=== PATIENT | male | born 1975 | race Hispanic/Latino ===

== ENCOUNTER 2024-12-19 20:06 | Emergency (ER) | payer SELFPAY ==
[~2024-12-19] VITALS: Ht 170.2 cm; Wt 95.3 kg
[2024-12-19 20:17] VITALS: TEMP 98.7
[2024-12-19] MEDS: BENZONATATE 100 MG CAPSULE PO STA (20:18)
[2024-12-19 20:38] LABS: RAPID GROUP A STREP negative (NEGATIVE)
[2024-12-19 20:47] LABS: INFLUENZA TYPE A Negative For Type A (NEGATIVE); INFLUENZA TYPE B Negative For Type B (NEGATIVE)
--- NOTE | 2024-12-19 21:24 | HMCIMG ---
EXAM: XR Chest, 1 View. CLINICAL HISTORY: 49 year old male with cough. COMPARISON: None provided. FINDINGS: LUNGS: The lungs are clear. No consolidation. PLEURAL SPACES: No pleural effusion or pneumothorax. HEART: The heart size is normal. BONES: No acute osseous abnormality. IMPRESSION: 1. No acute findings. /[place]
--- NOTE | 2024-12-19 21:28 | ERN ---
ED Note History of Present Illness Stated Complaint: C/O COUGH,CHILLS, PHLEGM, ITCHING TO THROAT Chief Complaint: Cough Time Seen by MD: 20:10 Time Seen by Midlevel: 20:11 Dictation: 49-year-old male coming in with complaints of cough for two days, fevers, congestion. Denies having any medical or surgical history. Denies any chest pain or chest discomfort. Denies any shortness a breath. Allergies: Coded Allergies: No Known Allergies (Unverified Allergy, Unknown, 12/19/24) Past Medical History Past Medical History: No Pertinent History Surgical History: None Review of System Dictation Constitutional: Negative for fever,chills, and weight loss Eyes: Negative for injury, pain,redness, and discharge ENT: Negative for injury,pain or swelling Cardiovascular: Negative for chest pain, palpitations, and edema Respiratory: Negative for shortness of breath, cough, and wheezing, Abdomen/GI: Negative for abdominal pain, nausea, vomiting, diarrhea, and constipation Back: Negative for injury and pain : Negative for injury, bleeding and discharge MS/Extremity: Negative for injury and deformity Skin: Negative for rash, and discoloration Neuro: Negative for headache, weakness, numbness, tingling, and seizure Psych: Negative for suicide ideation, homicidal ideation, and hallucinations Review of Systems: was completed Initial Vital Sign VS Vital Signs Date Time Temp Pulse Resp B/P (MAP) Pulse Ox O2 Delivery O2 Flow Rate FiO2 12/19/24 20:09 98.8 68 20 144/85 97 Room Air 12/19/24 20:17 0 21 Physical Exam Dictation General: awake, alert, NAD Head/Face: Normocephalic, atraumatic Eyes: PERRL, EOMI, vision at baseline ENT: oral cavity clear, TMs clear, no signs of infection Neck: Trachea midline, supple, no nuchal rigidity Cardiovascular: RRR, normal S1/S2, No MRGs, no JVD Respiratory: CTAB, no respiratory distress, No rales or wheezes Abdomen: Soft, non-tender, non-distended, normal bowel sounds, no guarding or rebound. Skin: Warm, dry, normal turgor, no rash MS/Extremity: Pulses equal, no cyanosis, neurovascular intact, FROM Neuro: COAx4, GCS 15, strength 5/5, CN 2-12 intact, normal cerebellar exam, normal gait, Psych: Normal behavior, mood, and affect normal Results (Laboratory/Radiology) Laboratory/Radiology Laboratory Tests Test 12/19/24 20:11 Influenza Type A Antigen Negative For Type A Influenza Type B Antigen Negative For Type B SARS-CoV-2, RNA, NAAT NEGATIVE SARS CoV-2 Group A Streptococcus Rapid negative (NEGATIVE) Labs Reviewed?: Yes X-RAY Comment: [facility] [address] [place] [address] IMAGING REPORT Signed PATIENT: KEILY BHATT MR#: [id number] : 1975 SEX: M AGE: 49 LOCATION: [facility] ORDER 14 STATUS: REG ER REPORT#: [id number] SERVICE 12 REASON: cough ORDERING PHYSICIAN: HENRRY HART NP PROCEDURE: CXR1VW - CHEST 1VW EXAM: XR Chest, 1 View. CLINICAL HISTORY: 49 year old male with cough. COMPARISON: None provided. FINDINGS: LUNGS: The lungs are clear. No consolidation. PLEURAL SPACES: No pleural effusion or pneumothorax. HEART: The heart size is normal. BONES: No acute osseous abnormality. IMPRESSION: 1. No acute findings. /[place] DICTATED BY: FRANK MAGUIRE MD DATE: 12/19/242222 ELECTRONICALLY SIGNED BY: FRANK MAGUIRE MD DATE: 12/19/242222 ED Course ED Course Orders Procedure Category Date Status Time Covid Rna Naat LAB 12/19/24 Complete 20:13 Influenza Type A & B, LAB 12/19/24 Complete Rapid 20:13 Rapid (Group A Strep) LAB 12/19/24 Complete 20:13 Chest 1vw RAD 12/19/24 Resulted 20:13 Benzonatate 100 Mg PHA 12/19/24 Complete Capsule (Tessalon 100 20:13 Current Medications Medications (Trade) Dose Ordered Sig/Joaquin Route PRN Reason Start Time Stop Time Status Last Admin Dose Admin Benzonatate (Tessalon 100mg Caps) 200 mg ONCE STAT PO 12/19/24 20:13 12/19/24 20:16 DC 12/19/24 20:18 Vital Signs Date Time Temp Pulse Resp B/P (MAP) Pulse Ox O2 Delivery O2 Flow Rate FiO2 12/19/24 20:17 98.8 68 20 144/85 97 Room Air* 0 21 12/19/24 20:09 98.8 68 20 144/85 97 Room Air Medical Decision Making MDM MDM: 49-year-old male coming in with complaints of cough for two days, fevers, congestion. Denies having any medical or surgical history. Denies any chest pain or chest discomfort. Denies any shortness a breath. Swabs are negative. Chest x-ray shows no acute findings. Discussed with the patient that is more likely has a viral syndrome and he needs to take [id number] medication to take for symptomatic control. Discussed to follow up with PCP in 1-2 days return to the hospital as needed. Differential diagnosis: Lenses, COVID, viral syndrome, pneumonia Rationale: Tests considered and ordered secondary to shared decision making include: Previous outside records reviewed: Old ER visits. Risk of complication and/or morbidity or mortality of patient management: None Medications-Per medication reconciliation Need for hospitalization: Patient does not meet criteria for hospitalization. Need for emergency major/minor surgery: No There are no social concerns with this patient. Prescription drug management Prescriptions will include symptomatic care Patient's prior external medical records from other ER visits were reviewed by me as indicated. Prior testing and results from previous visits were reviewed. Prior tests were taken into account with medical decision making and resource utilization, independent historian/historians were used to obtain complete medical history. I independently interpreted the test that were performed, results were reviewed by me and considered findings on radiology if ordered. Medical management and examination interpretation discussions were had by me with other qualified healthcare professionals as indicated for the patient's care. DX & DISP Disposition: Discharge Departure Impression: Primary Impression: Viral syndrome Condition: Stable Scripts Benzonatate (Benzonatate) 200 Mg Capsule 1 CAP PO TIDP PRN for cough for 7 Days, #21 CAP 0 Refills Prov: HENRRY HART [employer] 12/19/24 Additional Instructions: Your swabs are negative for influenza, COVID and strep. More than likely this is viral syndrome. This can last from 7-10 days. You can take Tylenol and Motrin [id number] for fever and body aches. I gave you a prescription for cough medication. You can also take EKGs to that are [id number]. Follow up with your PCP in 1-2 days return to the hospital as needed. Referrals: SELF,REFERRAL (PCP) Time of Disposition: 21:52 I have reviewed the case, and I agree with, Diagnosis and Plan HENRRY HART NP Dec 19, 2024 21:28
[2024-12-19 21:39] LABS: SARS-CoV-2, RNA, NAAT NEGATIVE SARS CoV-2 (NEGATIVE)
[2024-12-19] MEDS ORDERED: BENZ200C53 PO (21:53)
[2024-12-19 21:58] VITALS: BP 136/82; PULSE 62; RESP 16; O2SAT 97
== END 2024-12-19 22:04 | disposition home or self-care (01) ==
LOC: EDH 20:06
DX: B34.9 Viral infection, unspecified (principal); Z20.822 Contact with and (suspected) exposure to COVID-19
CPT/HCPCS: 71045; 87635; 87804; 87880; 99284